=== PATIENT | male | born 2000 | race Caucasian/White ===

== ENCOUNTER 2020-03-16 02:23 | Emergency (ER) | payer MEDICAID ==
[~2020-03-16] VITALS: Ht 185.4 cm; Wt 70.4 kg
[2020-03-16 02:26] VITALS: BP 139/85
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
[2020-03-16] MEDS ORDERED: TETanus/Pertussis (Acell)/Diphther VAC/PF (Tdap-Adult) 0.5ml syringe IMVAC ONE (02:45)
[2020-03-16] MEDS ORDERED: LIDOcaine 1% W/epiNEPHrine 1:200,000 10ml vial IJ ONE (02:45)
== END 2020-03-16 03:20 | disposition home or self-care (01) ==
LOC: ER 02:26
DX: S01.01XA Laceration without foreign body of scalp, initial encounter (principal); W22.8XXA Striking against or struck by other objects, initial encounter; Y93.89 Activity, other specified; Y92.89 Other specified places as the place of occurrence of the external cause; Y99.8 Other external cause status
CPT/HCPCS: 12001; 90471; 90715; 99283

== ENCOUNTER 2020-05-21 14:30 | Emergency (ER) | payer MEDICAID ==
[~2020-05-21] VITALS: Ht 188 cm; Wt 65.0 kg
[2020-05-21] MEDS ORDERED: MUPI22OI30 TOP (15:54)
[2020-05-21] MEDS ORDERED: DOXY100C2 PO (15:54)
[2020-05-21 16:28] VITALS: BP 121/77
== END 2020-05-21 16:30 | disposition home or self-care (01) ==
LOC: ER 14:30
DX: L02.414 Cutaneous abscess of left upper limb (principal); Z79.2 Long term (current) use of antibiotics
CPT/HCPCS: 99283

== ENCOUNTER 2021-12-28 12:34 | Emergency (ER) | payer MEDICAID ==
[~2021-12-28] VITALS: Ht 185.4 cm; Wt 65.9 kg
[2021-12-28 13:50] VITALS: BP 145/101
[2021-12-28] MEDS ORDERED: amox tr/potassium clavulanate 875/125mg TAB PO ONE (14:05)
[2021-12-28] MEDS ORDERED: tetanus & diphtheria toxoid (Td) vaccine 0.5ml IMVAC ONE (14:05)
[2021-12-28] MEDS ORDERED: CefTRIAXone 1000mg IM Kit (w/lidocaine diluent) IM ONE (14:05)
[2021-12-28] MEDS ORDERED: AMOX-580 PO ×2 (14:06)
[2021-12-28] MEDS ORDERED: METR-159 PO ×2 (14:06)
[2021-12-28] MEDS ORDERED: HYDR-3965 PO (14:09)
[2021-12-28] MEDS ORDERED: TETanus/Pertussis (Acell)/Diphther VAC/PF (Tdap-Adult) 0.5ml syringe IMVAC ONE (16:15)
[2021-12-29] MEDS ORDERED: NO HOME MEDS (20:48)
== END 2021-12-28 17:25 | disposition home or self-care (01) ==
LOC: EDBD → ER 12:35 → MERGE 12:35 → ER 17:25
DX: S62.636A Displaced fracture of distal phalanx of right little finger, initial encounter for closed fracture (principal); L03.011 Cellulitis of right finger; M79.644 Pain in right finger(s); Z79.2 Long term (current) use of antibiotics; Z79.899 Other long term (current) drug therapy; Z20.3 Contact with and (suspected) exposure to rabies; W50.3XXA Accidental bite by another person, initial encounter; Y93.89 Activity, other specified; Y92.89 Other specified places as the place of occurrence of the external cause; Y99.8 Other external cause status
CPT/HCPCS: 73130; 90471; 90715; 96372; 99284; J0696; 96374

== ENCOUNTER 2021-12-29 18:31 | Inpatient (IN) | payer MEDICAID ==
[~2021-12-29] VITALS: Ht 185.4 cm; Wt 145.0 kg
[~2021-12-29 18:31] MED LIST: AMOX-580 PO; HYDR-3965 PO; METR-159 PO
[2021-12-29 20:04] LABS: BASOPHILS % (AUTO) 0.2 % (0-1); EOSINOPHILS % (AUTO) 0.4 % (0-6); HEMATOCRIT 38.1 % (42.0-52.0); HEMOGLOBIN 12.9 g/dl (14.0-17.9); LYMPHOCYTES % (AUTO) 8.7 % (21-51); MEAN CORPUSCULAR HGB CONC 33.9 g/dL (33.0-36.5); MEAN CORPUSCULAR VOLUME 100.3 FL (78-98); MEAN PLATELET VOLUME 8.3 FL (7.4-10.4); MONOCYTES # (AUTO) 0.8 X10'3 (0-0.9); MONOCYTES % (AUTO) 6.5 % (2-12); NEUTROPHILS # (AUTO) 9.9 X10'3 (1.8-7.7); NEUTROPHILS % (AUTO) 84.2 % (42-75); PLATELET COUNT 198 X10'3 (140-440); RED CELL DISTRIBUTION WIDTH 13.3 % (11.5-14.5); WHITE BLOOD COUNT 11.7 X10'3 (4.5-11.0)
[2021-12-29] MEDS ORDERED: vancomycin/NS 1 GM ADD-VANTAGE 250 ML IV ONE (20:05)
[2021-12-29 20:28] LABS: ALANINE AMINOTRANSFERASE 31 U/L (12-78); ALBUMIN 3.2 G/DL (3.4-5.0); ALBUMIN/GLOBULIN RATIO 0.7 (1.1-1.5); ALKALINE PHOSPHATASE 50 IU/L (46-116); ANION GAP 4 (8-16); ASPARTATE AMINO TRANSFERASE 34 U/L (10-37); BILIRUBIN,TOTAL 0.3 MG/DL (0.1-1.0); BLOOD UREA NITROGEN 11 MG/DL (7-18); BUN/CREATININE RATIO 14.7 (5.4-32.0); CALCIUM 8.5 MG/DL (8.5-10.1); CHLORIDE 108 MMOL/L (99-107); CREATININE 0.75 MG/DL (0.60-1.10); GLUCOSE 104 MG/DL (70-104); POTASSIUM 3.9 MMOL/L (3.5-5.1); SODIUM 141 MMOL/L (135-145); TOTAL CARBON DIOXIDE 28.9 MMOL/L (24-32); TOTAL PROTEIN 7.5 G/DL (6.4-8.2); eGFR > 90 ML/MIN
[2021-12-29] MEDS ORDERED: morphine 4 MG/ML inj SYRINge IV ONE (20:40)
[2021-12-29] MEDS ORDERED: NO HOME MEDS (20:48)
[2021-12-29] MEDS ORDERED: HYDROcodone/acetaminophen 5mg/325mg tablet PO PRN (21:50)
[2021-12-29] MEDS ORDERED: magnesium 2GM in 50ml NS 50 ML IV PRN (21:50)
[2021-12-29] MEDS ORDERED: potassium CL 10mEq/100ml bag 100 ML IV PRN (21:50)
[2021-12-29] MEDS ORDERED: morphine 2 MG/ML inj. syringe IV PRN (21:50)
[2021-12-29] MEDS ORDERED: potassium Cl 20 mEq SR tablet PO PRN ×2 (21:50)
[2021-12-29] MEDS ORDERED: magnesium hydroxide 30ml (MOM) UD suspension PO PRN (21:50)
[2021-12-29] MEDS ORDERED: magnesium 4gm in 100ml NS 100 ML IV PRN (21:50)
[2021-12-29] MEDS ORDERED: acetaminophen 325mg tablet PO PRN ×2 (21:50)
[2021-12-29] MEDS ORDERED: magnesium Cl slow-release 64mg tablet PO PRN (21:50)
[2021-12-29] MEDS ORDERED: ondansetron/PF 4mg/2ml inj IV PRN (21:50)
[2021-12-29 22:00] VITALS: BP 128/79
[2021-12-29] MEDS: normal saline 1000ml 1,000 ML IV SCH (22:24)
--- NOTE | 2021-12-29 22:50 | NUR ---
ATTEMPTED TO CALL REPORT TO FLOOR RN, RN ON BREAK AND WILL CALL BACK.
--- NOTE | 2021-12-29 23:03 | NUR ---
Patient in room ED 1. I have received report from Eli PEREZ from ED and had the opportunity to ask questions and assume patient care.
[2021-12-29] MEDS: morphine 2 MG/ML inj. syringe IV PRN (23:59)
[2021-12-30] MEDS: HYDROcodone/acetaminophen 10/325mg tab PO PRN (01:46)
[2021-12-30] MEDS ORDERED: vancomycin/NS 1 GM ADD-VANTAGE 250 ML X 1 DOSE IV SCH (04:00)
[2021-12-30] MEDS: VANCOMYCIN 1GM/200ML IVPB 200 ML IV SCH ×3 (04:08→22:04)
[2021-12-30 05:57] LABS: BASOPHILS % (AUTO) 0.1 % (0-1); EOSINOPHILS # (AUTO) 0.1 X10'3 (0-0.9); EOSINOPHILS % (AUTO) 0.4 % (0-6); HEMATOCRIT 36.8 % (42.0-52.0); HEMOGLOBIN 12.4 g/dl (14.0-17.9); LYMPHOCYTES # (AUTO) 0.9 X10'3 (1.1-4.8); LYMPHOCYTES % (AUTO) 6.2 % (21-51); MEAN CORPUSCULAR HGB CONC 33.7 g/dL (33.0-36.5); MEAN PLATELET VOLUME 8.8 FL (7.4-10.4); MONOCYTES % (AUTO) 6.7 % (2-12); NEUTROPHILS # (AUTO) 12.5 X10'3 (1.8-7.7); NEUTROPHILS % (AUTO) 86.6 % (42-75); PLATELET COUNT 198 X10'3 (140-440); RED BLOOD COUNT 3.65 X10'6 (4.70-6.10); RED CELL DISTRIBUTION WIDTH 13.4 % (11.5-14.5); WHITE BLOOD COUNT 14.5 X10'3 (4.5-11.0)
--- NOTE | 2021-12-30 06:27 | NUR ---
Problems reprioritized. Patient report given, questions answered & plan of care reviewed with Les PEREZ.
--- NOTE | 2021-12-30 07:00 | NUR ---
Patient report received, questions answered plan of care reviewed with CHRIS Francis
[2021-12-30 07:19] LABS: SODIUM 141 MMOL/L (135-145)
[2021-12-30 07:34] LABS: ALANINE AMINOTRANSFERASE 29 U/L (12-78); ALBUMIN 2.9 G/DL (3.4-5.0); ALBUMIN/GLOBULIN RATIO 0.9 (1.1-1.5); ALKALINE PHOSPHATASE 45 IU/L (46-116); ANION GAP 9 (8-16); ASPARTATE AMINO TRANSFERASE 25 U/L (10-37); BILIRUBIN,TOTAL 0.3 MG/DL (0.1-1.0); BLOOD UREA NITROGEN 12 MG/DL (7-18); BUN/CREATININE RATIO 16.9 (5.4-32.0); CALCIUM 7.8 MG/DL (8.5-10.1); CHLORIDE 107 MMOL/L (99-107); CREATININE 0.71 MG/DL (0.60-1.10); GLUCOSE 119 MG/DL (70-104); TOTAL CARBON DIOXIDE 24.8 MMOL/L (24-32); TOTAL PROTEIN 6.2 G/DL (6.4-8.2); eGFR > 90 ML/MIN
[2021-12-30 07:55] VITALS: BP 126/74
[2021-12-30] MEDS: K and/or MAG REPLACEMENT MC SCH ×3 (08:00→20:00)
[2021-12-30] MEDS: normal saline 1000ml 1,000 ML IV SCH ×3 (08:53→18:48)
[2021-12-30] MEDS: nicotine 14mg patch - 24hr TD SCH (08:55)
[2021-12-30] MEDS: heparin, porcine 5000 units/ml vial SQ SCH ×2 (09:00→21:14)
[2021-12-30 11:00] VITALS: BP 122/82
[2021-12-30] MEDS: ampicillin/sulbac 3gm/NS 100ml 100 ML IV SCH ×2 (15:22→21:12)
[2021-12-30 18:00] VITALS: BP 124/95
[2021-12-30] MEDS: morphine 2 MG/ML inj. syringe IV PRN (18:44)
--- NOTE | 2021-12-30 19:11 | NUR ---
Problems reprioritized. Patient report given, questions answered & plan of care reviewed with Jesus PEREZ.
[2021-12-30] MEDS ORDERED: VANCOMYCIN LEVEL IV ONE (19:30)
[2021-12-30 21:40] LABS: C-REACTIVE PROTEIN 7.56 MG/DL (0.0-0.5); VANCOMYCIN,TROUGH 7.1 UG/ML (6.0-14.0)
[2021-12-30 23:59] VITALS: BP 114/59
[2021-12-31] MEDS: ampicillin/sulbac 3gm/NS 100ml 100 ML IV SCH ×4 (02:13→20:36)
[2021-12-31] MEDS: VANCOMYCIN 1GM/200ML IVPB 200 ML IV SCH (04:21)
[2021-12-31] MEDS: HYDROcodone/acetaminophen 10/325mg tab PO PRN (05:49)
[2021-12-31 06:02] LABS: BASOPHILS % (AUTO) 0.3 % (0-1); EOSINOPHILS # (AUTO) 0.1 X10'3 (0-0.9); HEMATOCRIT 40.6 % (42.0-52.0); HEMOGLOBIN 13.8 g/dl (14.0-17.9); LYMPHOCYTES # (AUTO) 1.6 X10'3 (1.1-4.8); LYMPHOCYTES % (AUTO) 14.6 % (21-51); MEAN CORPUSCULAR HEMOGLOBIN 34.5 PG (27.0-31.0); MEAN CORPUSCULAR HGB CONC 33.9 g/dL (33.0-36.5); MEAN CORPUSCULAR VOLUME 101.8 FL (78-98); MEAN PLATELET VOLUME 8.3 FL (7.4-10.4); MONOCYTES # (AUTO) 0.9 X10'3 (0-0.9); MONOCYTES % (AUTO) 8.4 % (2-12); NEUTROPHILS # (AUTO) 8.2 X10'3 (1.8-7.7); NEUTROPHILS % (AUTO) 75.7 % (42-75); PLATELET COUNT 278 X10'3 (140-440); RED BLOOD COUNT 3.99 X10'6 (4.70-6.10); RED CELL DISTRIBUTION WIDTH 13.5 % (11.5-14.5); WHITE BLOOD COUNT 10.9 X10'3 (4.5-11.0)
[2021-12-31 06:17] LABS: ALANINE AMINOTRANSFERASE 30 U/L (12-78); ALBUMIN 3.1 G/DL (3.4-5.0); ALBUMIN/GLOBULIN RATIO 0.8 (1.1-1.5); ALKALINE PHOSPHATASE 53 IU/L (46-116); ANION GAP 10 (8-16); ASPARTATE AMINO TRANSFERASE 19 U/L (10-37); BILIRUBIN,TOTAL 0.2 MG/DL (0.1-1.0); BLOOD UREA NITROGEN 12 MG/DL (7-18); BUN/CREATININE RATIO 16.7 (5.4-32.0); CALCIUM 8.5 MG/DL (8.5-10.1); CHLORIDE 104 MMOL/L (99-107); CREATININE 0.72 MG/DL (0.60-1.10); GLUCOSE 101 MG/DL (70-104); POTASSIUM 4.2 MMOL/L (3.5-5.1); SODIUM 139 MMOL/L (135-145); TOTAL CARBON DIOXIDE 24.6 MMOL/L (24-32); TOTAL PROTEIN 6.9 G/DL (6.4-8.2); eGFR > 90 ML/MIN
--- NOTE | 2021-12-31 06:33 | NUR ---
Patient report received, questions answered plan of care reviewed with CHRIS Lee
[2021-12-31] MEDS: K and/or MAG REPLACEMENT MC SCH ×2 (08:00→18:58)
[2021-12-31] MEDS: nicotine 14mg patch - 24hr TD SCH ×4 (08:00→10:44)
[2021-12-31 08:17] VITALS: BP 116/79
[2021-12-31] MEDS: VANCOmycin 1250MG/NS 250ml Bag 250 ML IV SCH ×2 (08:31→17:56)
[2021-12-31] MEDS: heparin, porcine 5000 units/ml vial SQ SCH ×2 (08:39→20:36)
[2021-12-31] MEDS: normal saline 1000ml 1,000 ML IV SCH (11:47)
--- NOTE | 2021-12-31 12:46 | NUR ---
WOUND INFECTION EDUCATION PROVIDED BY WOUND CARE 1. Patient instructed to call their primary doctor, or go the ED immediately if any of the following symptoms occur: * Increased pain in wound * Increase in drainage from the wound * Redness in the skin surrounding the wound * Warmth in the skin surrounding the wound * Bleeding from the wound * Temperature of 101 or greater 2. If any of these occur while in the hospital tell a nurse immediately. Addendum: 12/31/21 at 1246 by Joann Arrieta RN Amended: Links added.
[2021-12-31] MEDS ORDERED: ibuprofen tablet 400 MG TABLET PO PRN (13:45)
[2021-12-31 14:14] LABS: CLARITY,URINE CLEAR (Clear); GLUCOSE, URINE NEGATIVE (Neg); KETONES,URINE NEGATIVE (Neg); LEUKOCYTE ESTERASE ,URINE NEGATIVE (Neg); NITRITES, URINE NEGATIVE (Neg); OCCULT BLOOD,URINE NEGATIVE (Neg); PH,URINE 5.5 (4.8-8.0); PROTEIN,URINE NEGATIVE (Neg); UROBILINOGEN,URINE 0.2 E.U/dL (0.2-1.0)
[2021-12-31 14:15] LABS: COLOR,URINE STRAW (Yellow); UA COLLECTION TYPE CLN CATCH MIDSTREAM
[2021-12-31 14:23] LABS: URINE AMPHETAMINE SCREEN POSITIVE (Neg); URINE BARBITUATE SCREEN NEGATIVE (Neg); URINE BENZODIAZEPINES SCREEN NEGATIVE (Neg); URINE CANNABINOID SCREEN POSITIVE (Neg); URINE COCAINE SCREEN NEGATIVE (Neg); URINE METHADONE SCREEN NEGATIVE (Neg); URINE OPIATE SCREEN POSITIVE (Neg); URINE PHENCYCLIDINE SCREEN NEGATIVE (Neg)
[2021-12-31] MEDS ORDERED: nicotine 14mg patch - 24hr TD ONE (16:15)
--- NOTE | 2021-12-31 18:38 | NUR ---
Problems reprioritized. Patient report given, questions answered & plan of care reviewed with Jesus PEREZ.
[2021-12-31] MEDS: lactobacillus rhamnosus 10,000 MMU CELLS/CAPSULE PO SCH (20:36)
[2022-01-01] MEDS: ampicillin/sulbac 3gm/NS 100ml 100 ML IV SCH ×2 (01:47→08:19)
[2022-01-01] MEDS: VANCOmycin 1250MG/NS 250ml Bag 250 ML IV SCH ×2 (02:45→10:00)
[2022-01-01] MEDS: normal saline 1000ml 1,000 ML IV SCH ×2 (06:06)
--- NOTE | 2022-01-01 06:29 | NUR ---
Patient in room [facility]. I have received report from CHRIS AUGUSTINE and had the opportunity to ask questions and assume patient care.
[2022-01-01 07:00] VITALS: BP 116/64
[2022-01-01] MEDS: K and/or MAG REPLACEMENT MC SCH (08:00)
[2022-01-01] MEDS: lactobacillus rhamnosus 10,000 MMU CELLS/CAPSULE PO SCH (08:23)
[2022-01-01] MEDS: nicotine 14mg patch - 24hr TD SCH (08:23)
[2022-01-01] MEDS: heparin, porcine 5000 units/ml vial SQ SCH (08:34)
[2022-01-01] MEDS ORDERED: LACT1CAP26 PO (09:00)
[2022-01-01] MEDS ORDERED: IBUP-1984 PO (09:00)
[2022-01-01] MEDS ORDERED: AMOX-580 PO (09:00)
[2022-01-01] MEDS ORDERED: VANCOMYCIN LEVEL IV ONE (09:30)
[2022-01-01 09:45] LABS: BASOPHILS % (AUTO) 0.4 % (0-1); EOSINOPHILS # (AUTO) 0.1 X10'3 (0-0.9); EOSINOPHILS % (AUTO) 1.2 % (0-6); HEMATOCRIT 40.8 % (42.0-52.0); HEMOGLOBIN 14.1 g/dl (14.0-17.9); LYMPHOCYTES # (AUTO) 1.3 X10'3 (1.1-4.8); LYMPHOCYTES % (AUTO) 15.9 % (21-51); MEAN CORPUSCULAR HEMOGLOBIN 34.6 PG (27.0-31.0); MEAN CORPUSCULAR HGB CONC 34.5 g/dL (33.0-36.5); MEAN CORPUSCULAR VOLUME 100.3 FL (78-98); MEAN PLATELET VOLUME 7.4 FL (7.4-10.4); MONOCYTES # (AUTO) 0.4 X10'3 (0-0.9); MONOCYTES % (AUTO) 4.9 % (2-12); NEUTROPHILS # (AUTO) 6.4 X10'3 (1.8-7.7); NEUTROPHILS % (AUTO) 77.6 % (42-75); PLATELET COUNT 296 X10'3 (140-440); RED BLOOD COUNT 4.07 X10'6 (4.70-6.10); RED CELL DISTRIBUTION WIDTH 13.8 % (11.5-14.5); WHITE BLOOD COUNT 8.3 X10'3 (4.5-11.0)
--- NOTE | 2022-01-01 10:09 | NUR ---
Paged case management re: appt tomorrow with wound clinic
[2022-01-01 10:10] LABS: ALANINE AMINOTRANSFERASE 29 U/L (12-78); ALBUMIN 3.1 G/DL (3.4-5.0); ALBUMIN/GLOBULIN RATIO 0.8 (1.1-1.5); ALKALINE PHOSPHATASE 48 IU/L (46-116); ANION GAP 12 (8-16); ASPARTATE AMINO TRANSFERASE 19 U/L (10-37); BILIRUBIN,TOTAL 0.3 MG/DL (0.1-1.0); BLOOD UREA NITROGEN 11 MG/DL (7-18); BUN/CREATININE RATIO 12.9 (5.4-32.0); CALCIUM 8.4 MG/DL (8.5-10.1); CHLORIDE 104 MMOL/L (99-107); CREATININE 0.85 MG/DL (0.60-1.10); GLUCOSE 147 MG/DL (70-104); POTASSIUM 3.8 MMOL/L (3.5-5.1); SODIUM 140 MMOL/L (135-145); TOTAL CARBON DIOXIDE 24.5 MMOL/L (24-32); VANCOMYCIN,TROUGH 8.2 UG/ML (6.0-14.0); eGFR > 90 ML/MIN
[2022-01-01 11:00] VITALS: BP 126/75
--- NOTE | 2022-01-01 11:28 | NUR ---
PATIENT STABLE AND APPROPRIATE FOR DISCHARGE, IV TAKEN OUT, WOUND DRESSING CHANGED AND WOUND PICTURE TAKEN, EDUCATION GIVEN, ALL BELONGINGS SENT WITH PATIENT, PATIENT GIVEN WOUND CARE SUPPLIES AND TAUGHT HOW TO DRESS WOUND, WOUND CLINIC APPOINTMENT MADE FOR 01/02/22 AT 0830. PATIENT WALKED DOWN TO CAR, PATIENT DRIVING SELF HOME
== END 2022-01-01 11:28 | disposition home or self-care (01) | DRG 383 ==
LOC: EDBD → ER 18:32 → ED HOLD 21:52 → MERGE 21:52 → SUR 3N 23:15
PROVIDERS: ADMIT Internal Medicine; ATTEND Family Medicine
DX: L03.011 Cellulitis of right finger (principal); F11.10 Opioid abuse, uncomplicated; S62.638A Displaced fracture of distal phalanx of other finger, initial encounter for closed fracture; Z20.822 Contact with and (suspected) exposure to COVID-19; F12.90 Cannabis use, unspecified, uncomplicated; Y04.2XXA Assault by strike against or bumped into by another person, initial encounter; F17.210 Nicotine dependence, cigarettes, uncomplicated; Z88.5 Allergy status to narcotic agent; Y93.89 Activity, other specified; Y92.89 Other specified places as the place of occurrence of the external cause; Y99.8 Other external cause status; Z71.6 Tobacco abuse counseling; Z71.41 Alcohol abuse counseling and surveillance of alcoholic; Z71.51 Drug abuse counseling and surveillance of drug abuser
CPT/HCPCS: 36415; 73140; 80053; 80202; 80305; 81003; 83605; 84145; 85025; 86140; 87040; 87635; 96365; 96375; 99285; 99406; C9803; G0378; J0295; J1644; J2270; J3370; J7030

== ENCOUNTER 2022-01-07 10:45 | Emergency (ER) | payer MEDICAID ==
[~2022-01-07] VITALS: Ht 185.4 cm; Wt 65.9 kg
[~2022-01-07 10:45] MED LIST changes: -HYDR-3965 PO; +IBUP-1984 PO; +LACT1CAP26 PO; -METR-159 PO
[2022-01-07 10:52] VITALS: BP 112/79
--- NOTE | 2022-01-07 13:28 | NUR ---
PT IS RESTING QUIETLY ON GURNEY, REQUESTING PAIN MEDICATION, WAS RECENTLY ADMITTED FOR INFECTION ON FINGER, RAN OUT OF PAIN MED 2 DAYS AGO, NOT TAKING OTC MEDS, CURRENTLY TAKING ANTIBIOTIC PRESCRIBED
[2022-01-07] MEDS ORDERED: HYDR-3964 PO (15:02)
== END 2022-01-07 15:21 | disposition home or self-care (01) ==
LOC: ER 10:46
DX: M79.644 Pain in right finger(s) (principal); F15.10 Other stimulant abuse, uncomplicated; Z88.5 Allergy status to narcotic agent; Z79.899 Other long term (current) drug therapy
CPT/HCPCS: 99283

== ENCOUNTER 2022-10-09 00:48 | Emergency (ER) | payer MEDICAID ==
[~2022-10-09] VITALS: Ht 177.8 cm; Wt 68.2 kg
[~2022-10-09 00:48] MED LIST changes: -AMOX-580 PO
[2022-10-09 00:52] VITALS: BP 123/78
== END 2022-10-09 01:37 | disposition home or self-care (01) ==
LOC: ER 00:48
DX: M79.644 Pain in right finger(s) (principal); F15.90 Other stimulant use, unspecified, uncomplicated; Z88.5 Allergy status to narcotic agent; Z79.899 Other long term (current) drug therapy
CPT/HCPCS: 99281